=== PATIENT | male | born 1990 | race Caucasian/White ===

== ENCOUNTER 2019-05-29 19:08 | Observation (INO) ==
[2019-05-29] MEDS ORDERED: IBUPROFEN 600 MG TAB PO STA (19:42)
--- NOTE | 2019-05-29 20:01 | XRay Report ---
XR tibia fibula LT 2V CLINICAL HISTORY: left leg pain pain COMPARISON: None. DISCUSSION: The bones and joint spaces appear intact. There is no evidence of fracture, dislocation o r bony disease. There is no evidence for soft tissue swelling. IMPRESSION: Negative study. The above report was generated using voice recognition software. It may contain grammatical, syntax or spelling errors. Electronically signed by: Babar Arevalo M.D. 05/29/2019 8:00 PM
--- NOTE | 2019-05-29 20:02 | XRay Report ---
XR ankle LT min 3V routine CLINICAL HISTORY: left leg pain pain COMPARISON: None. DISCUSSION: Findings consistent with a partial ankle fusion. Bony alignment is anatomic. No acute bon y abnormality. There is no evidence for soft tissue swelling. IMPRESSION: No acute process post partial ankle fusion. The above report was generated using voice recognition software. It may contain grammatical, syntax or spelling errors. Electronically signed by: Babar Arevalo M.D. 05/29/2019 8:01 PM
--- NOTE | 2019-05-29 20:03 | XRay Report ---
XR foot LT min 3V routine CLINICAL HISTORY: left leg pain pain COMPARISON: None. DISCUSSION: The bones and joint spaces appear intact. There is no evidence of fracture, dislocation o r bony disease. Anatomic alignment post partial ankle fusion. IMPRESSION: No acute process post partial ankle fusion. The above report was generated using voice recognition software. It may contain grammatical, syntax or spelling errors. Electronically signed by: Babar Arevalo M.D. 05/29/2019 8:01 PM
[2019-05-29 20:29] LABS: Basophils # (auto) 0.02 K/uL (0-0.2); Basophils % (auto) 0.1 %; Eosinophils # (auto) 0.02 K/uL (0-0.5); Eosinophils % (auto) 0.1 %; Hematocrit (blood only) 39.5 % (42-52); Hemoglobin 14.2 g/dL (14.0-18.0); Immature Granulocytes # (auto) 0.03 K/uL (0.00-0.02); Immature Granulocytes % (auto) 0.2 %; Lymphocytes # (auto) 1.72 K/uL (1.2-3.4); Lymphocytes % (auto) 11.5 %; Mean Corpuscular Hemoglobin 29.4 pg (25-34); Mean Corpuscular Hgb Conc 35.9 g/dL (32-36); Mean Corpuscular Volume 81.8 fL (80-100); Mean Platelet Volume 10.4 fL (7.4-10.4); Monocytes # (auto) 0.92 K/uL (0.11-0.59); Monocytes % (auto) 6.1 %; Neutrophils # (auto) 12.31 K/uL (1.4-6.5); Platelet Count 236 K/uL (130-400); RDW Coefficient of Variation 12.7 % (11.5-14.5); RDW Standard Deviation 38.3 fL (36.4-46.3); Red Blood Count 4.83 M/uL (4.7-6.1); White Blood Count 15.02 K/uL (4.8-10.8)
[2019-05-29] MEDS ORDERED: IOVERSOL 100ml IV PRN (20:35)
[2019-05-29 20:51] LABS: Albumin Globulin Ratio 1.3 (0.9-2); Albumin Level 4.1 gm/dl (3.4-5.0); BUN Creatinine Ratio 11.5 (10-20); Bilirubin,Total 0.4 mg/dl (0.2-1); Calcium 8.8 mg/dl (8.5-10.1); Creatinine Clr Calc Pharmacy 121.8 ml/min; Est GFR (African American) 100.5; Est GFR (Non-African American) 86.7; Globulin 3.1 gm/dl (2.5-4.0); Potassium 4.3 mmol/L (3.5-5.1); Total Protein 7.2 gm/dl (6.4-8.2)
--- NOTE | 2019-05-29 20:56 | CT Scan Report ---
CT tib/fib LT w con CLINICAL HISTORY: left leg pain, calf tight, severe pain TECHNIQUE: Transaxial acquisition with multiaxial reformatted images. COMPARISON STUDY: None FINDINGS: Generalized muscular and to a lesser extent soft tissue edematous change throughout the low er leg. The arterial structures through this region appear to be intact with no major compromise. At the proximal to mid lower leg there is suggestion of an intramuscular hematoma measuring approxima tely 5 x 7 cm. Exact definition of the boundaries are difficult to evaluate. There are findings of mild subcutaneous fat edematous change of this is less prominent as compared to the muscular component. Bony structures appear intact. IMPRESSION: 1. Generalized muscular and to lesser extent subcutaneous soft tissue edematous change throughout the entire lower leg. 2. The vascular arterial structures appear to be intact within the lower leg with no major compromise . 3. Probable intramuscular hematoma. Difficult to to measure. 4. Estimated dimensions are 5 x 7 cm, although boundaries are again difficult to define with this logan surement potentially inaccurate. The above report was generated using voice recognition software. It may contain grammatical, syntax or spelling errors. Electronically signed by: Babar Arevalo M.D. 05/29/2019 8:54 PM
[2019-05-29] MEDS ORDERED: ETHYL CHLORIDE AER PER SPRAY 100 ML CAN EXT ONE (21:16)
[2019-05-29 22:10] LABS: Magnesium 1.9 mg/dl (1.8-2.4)
--- NOTE | 2019-05-29 22:18 | Ultrasound Report ---
US extremity non-vascular ltd CLINICAL HISTORY: Left calf hematoma, please measure COMPARISON STUDY: CT same day FINDINGS: Ultrasonic evaluation of the left calf demonstrates a hematoma of the mid calf measuring 9 x 5 by 4 cm. It appears to be intramuscular. It is well-circumscribed. IMPRESSION: Intramuscular hematoma measuring 9 x 5 x 4 cm. The above report was generated using voice recognition software. It may contain grammatical, syntax or spelling errors. Electronically signed by: Babar Arevalo M.D. 05/29/2019 10:17 PM
[2019-05-29 22:25] LABS: Thyroid Stimulating Hormone 3.21 uIu/ml (0.300-4.500)
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
--- NOTE | 2019-05-29 23:59 | Emergency Department Note ---
History of Present Illness General Chief complaint: Leg Injury/Pain Stated complaint: LEFT CALF PAIN Time Seen by Provider: 05/29/19 19:38 History of Present Illness Maximum Pain Intensity: 9 This is a 28-year-old male that presents to the emergency department via private vehicle with complaints of "left calf pain". He is accompanied by 2 corrections officers as the patient is currently incarcerated. The patient states that he was playing football earlier today around 3 PM when he notes that somebody landed on the back of his left leg injuring the left calf. He notes extreme difficulty with weightbearing and has pain with dorsiflexion. He rates the pain as a 9/10. He notes some tingling developing in the left foot and believes it is feeling much cooler than the right. He has never had this before. Home Medications Home Medications Medication Instructions Recorded Confirmed Type No Known Home Medications 05/29/19 05/29/19 History Allergies Allergy/AdvReac Type Severity Reaction Status Date / Time No Known Allergies Allergy Unverified 05/29/19 20:13 Past Med/Surg History Medical History No pertinent past medical history Surgical History No pertinent past surgical history Social History Preferred Language: Turkish Communication Ability: Effective Page Technician Required: No Beliefs That Will Affect Care: None Current Living Situation: Other Current Living Situation Comment: Inmate Other Information That Helps Us Care for You: No Feels Safe at Home: Yes Smoking Status: Never smoker Do You Dip or Chew Tobacco: No ; Second Hand Exposure: No ; Tobacco Cessation Education Requested by Patient: No Hx Alcohol Use: No Hx Substance Use: No Review of Systems A total of 10 systems reviewed and were otherwise negative Physical Exam Vital Signs Vital Signs - 24 hr 05/29/19 21:37 Pulse Rate [Finger] 64 Respiratory Rate 20 Respiratory Effort / Characteristics Non-Labored Spontaneous Respiratory Depth Normal Respiratory Pattern Regular Blood Pressure [Right Arm] 151/101 H Blood Pressure Mean [Right Arm] 117 Blood Pressure Position [Right Arm] Sitting Pulse Oximetry 100 Oxygen Delivery Method Room Air VITAL SIGNS - Vital signs and nursing notes were reviewed. In room D9 GENERAL -28-year-old male appearing his stated age who is in no acute distress. Communicates well with provider and answers questions appropriately. SKIN - Without rashes. Small faint petechial rash noted overlying the left anterior brown. The left calf appears to be tense visually. No deformity on exam. No break in the integument. It is appropriate color and symmetric to the right. LUNGS - Chest wall symmetric without accessory muscle use, intercostals retractions, or central cyanosis. Normal vesicular breath sounds CTA B/L. No wheezes, rales, or rhonchi appreciated. CARDIAC - RRR with S1/S2. No murmur, rubs, or gallops appreciated. EXTREMITIES -no peripheral cyanosis. Well healing surgical scar on the left foot. The patient's left calf is tense on examination. Patient is quite tender on examination with palpation overlying the left calf as well as the lateral and medial aspects of the left calf tracking from just distal to the left flexor crease of the knee to the left ankle. There is no evidence of complete detachment of the ligamentous structures or rolling under the skin. The patient does have within normal limit dorsalis pedis and posterior tibial pulse of the left lower extremity and is symmetric to the right. However, the patient's left lower extremity is cooler to the touch compared to the right. Cap refill in the left lower extremity toes is within normal limits. Passive plantarflexion is within normal limits but patient has extreme pain with dorsiflexion passively of the left lower extremity. He has decreased movement of the structures below the left knee actively. +5/5 strength noted in UE/LE bilaterally. NEUROLOGIC - Cranial nerves II through XII grossly intact. Sensory intact to light touch throughout. No neurovascular deficit on examination in the left lower extremity. Course Administered Medications Sodium Chloride (Nss 1000ml) 1,000 mls @ 120 mls/hr IV .Q8H20M AUBREE Stop: 06/29/19 11:44 Last Admin: 05/30/19 11:40 Dose: 120 mls/hr Documented by: [id number] Tramadol HCl (Ultram) 25 - 50 mg PO Q4H PRN PRN Reason: Pain Stop: 06/29/19 00:00 Last Admin: 05/30/19 00:24 Dose: 50 mg Documented by: [id number] Discontinued Medications Sodium Chloride (Nss 1000ml) 1,000 mls @ 120 mls/hr IV .Q8H20M AUBREE Stop: 06/29/19 00:00 Last Infusion: 05/30/19 11:41 Dose: 0 mls/hr Documented by: [id number] Admin: 05/30/19 00:26 Dose: 60 mls/hr Documented by: [id number] Promethazine HCl 6.25 mg/ (Sodium Chloride) 50.25 mls @ 201 mls/hr IV ONE ONE Stop: 05/30/19 00:29 Last Infusion: 05/30/19 00:49 Dose: 0 mls/hr Documented by: [id number] Admin: 05/30/19 00:32 Dose: 201 mls/hr Documented by: [id number] Ibuprofen (Motrin) 600 mg PO NOW STA Stop: 05/29/19 19:43 Last Admin: 05/29/19 20:48 Dose: 600 mg Documented by: [id number] Influenza Virus Vaccine Quadrival (Flucelvax Quad Vaccine) 0.5 ml IM .ONCE ONE Stop: 05/30/19 08:01 Last Admin: 05/30/19 09:30 Dose: 0.5 ml Documented by: [id number] Ioversol (Optiray 320 100ml) 90 ml IV ONCE PRN PRN Reason: Interaction Checking Stop: 06/02/19 20:34 Last Admin: 05/29/19 20:37 Dose: 90 ml Documented by: [id number] Medical Decision Making Laboratory Data Result diagrams: 05/30/19 10:02 05/29/19 20:21 Lab Results 05/29/19 05/29/19 05/29/19 Range/Units 20:20 20:21 20:21 WBC 15.02 H (4.8-10.8) K/uL RBC 4.83 (4.7-6.1) M/uL Hgb 14.2 (14.0-18.0) g/dL Hct 39.5 L (42-52) % MCV 81.8 (80-100) fL MCH 29.4 (25-34) pg MCHC 35.9 (32-36) g/dL RDW Std Deviation 38.3 (36.4-46.3) fL RDW Coeff of Danna 12.7 (11.5-14.5) % Plt Count 236 (130-400) K/uL MPV 10.4 (7.4-10.4) fL Immature Gran % (Auto) 0.2 % Neut % (Auto) 82.0 % Lymph % (Auto) 11.5 % [place] % (Auto) 6.1 % Eos % (Auto) 0.1 % Baso % (Auto) 0.1 % Immature Gran # (Auto) 0.03 H (0.00-0.02) K/uL Neut # (Auto) 12.31 H (1.4-6.5) K/uL Lymph # (Auto) 1.72 (1.2-3.4) K/uL [place] # (Auto) 0.92 H (0.11-0.59) K/uL Eos # (Auto) 0.02 (0-0.5) K/uL Baso # (Auto) 0.02 (0-0.2) K/uL Sodium 139 (136-145) mmol/L Potassium 4.3 (3.5-5.1) mmol/L Chloride 106 (98-107) mmol/L Carbon Dioxide 25 (21-32) mmol/L Anion Gap 7.0 (3-11) BUN 13 (7-18) mg/dl Creatinine 1.13 (0.6-1.4) mg/dl Est Cr Clr Drug Dosing 121.8 ml/min Est GFR ( Amer) 100.5 Est GFR (Non-Af Amer) 86.7 BUN/Creatinine Ratio 11.5 (10-20) Glucose 96 (70-99) mg/dl Calcium 8.8 (8.5-10.1) mg/dl Magnesium 1.9 (1.8-2.4) mg/dl Total Bilirubin 0.4 (0.2-1) mg/dl AST 30 (15-37) U/L ALT 33 (12-78) U/L Alkaline Phosphatase 60 (45-117) U/L Total Creatine Kinase 237 (39-308) U/L Total Protein 7.2 (6.4-8.2) gm/dl Albumin 4.1 (3.4-5.0) gm/dl Globulin 3.1 (2.5-4.0) gm/dl Albumin/Globulin Ratio 1.3 (0.9-2) Procalcitonin < 0.05 (0-0.5) ng/ml TSH 3.210 (0.300-4.500) uIu/ml Specimen Hemolysis Imaging Data Radiologist's Impression: XR tibia fibula LT 2V CLINICAL HISTORY: left leg pain pain COMPARISON: None. DISCUSSION: The bones and joint spaces appear intact. There is no evidence of fracture, dislocation or bony disease. There is no evidence for soft tissue swelling. IMPRESSION: Negative study. The above report was generated using voice recognition software. It may contain grammatical, syntax or spelling errors. Electronically signed by: Babar Arevalo M.D. 05/29/2019 8:00 PM XR foot LT min 3V routine CLINICAL HISTORY: left leg pain pain COMPARISON: None. DISCUSSION: The bones and joint spaces appear intact. There is no evidence of fracture, dislocation or bony disease. Anatomic alignment post partial ankle fusion. IMPRESSION: No acute process post partial ankle fusion. The above report was generated using voice recognition software. It may contain grammatical, syntax or spelling errors. Electronically signed by: Babar Arevalo M.D. 05/29/2019 8:01 PM XR ankle LT min 3V routine CLINICAL HISTORY: left leg pain pain COMPARISON: None. DISCUSSION: Findings consistent with a partial ankle fusion. Bony alignment is anatomic. No acute bony abnormality. There is no evidence for soft tissue swelling. IMPRESSION: No acute process post partial ankle fusion. The above report was generated using voice recognition software. It may contain grammatical, syntax or spelling errors. Electronically signed by: Babar Arevalo M.D. 05/29/2019 8:[address] tib/fib LT w con CLINICAL HISTORY: left leg pain, calf tight, severe pain TECHNIQUE: Transaxial acquisition with multiaxial reformatted images. COMPARISON STUDY: None FINDINGS: Generalized muscular and to a lesser extent soft tissue edematous change throughout the lower leg. The arterial structures through this region appear to be intact with no major compromise. At the proximal to mid lower leg there is suggestion of an intramuscular h ematoma measuring approximately 5 x 7 cm. Exact definition of the boundaries are difficult to evaluate. There are findings of mild subcutaneous fat edematous change of this is less prominent as compared to the muscular component. Bony structures appear intact. IMPRESSION: 1. Generalized muscular and to lesser extent subcutaneous soft tissue edematous change throughout the entire lower leg. 2. The vascular arterial structures appear to be intact within the lower leg with no major compromise. 3. Probable intramuscular hematoma. Difficult to to measure. 4. Estimated dimensions are 5 x 7 cm, although boundaries are again difficult to define with this measurement potentially inaccurate. The above report was generated using voice recognition software. It may contain grammatical, syntax or spelling errors. Electronically signed by: Babar Arevalo M.D. 05/29/2019 8:54 PM US extremity non-vascular ltd CLINICAL HISTORY: Left calf hematoma, please measure COMPARISON STUDY: CT same day FINDINGS: Ultrasonic evaluation of the left calf demonstrates a hematoma of the mid calf measuring 9 x 5 by 4 cm. It appears to be intramuscular. It is well- circumscribed. IMPRESSION: Intramuscular hematoma measuring 9 x 5 x 4 cm. The above report was generated using voice recognition software. It may contain grammatical, syntax or spelling errors. Electronically signed by: Babar Arevalo M.D. 05/29/2019 10:17 PM [facility] Narrative Patient was seen and evaluated as above in room D9. Review was performed of nursing notes and vital signs. After obtaining a thorough history and physical examination the above work up was performed. He presents to us today with left calf pain. His examination is concerning for possible compartment syndrome noting the subjective complaints of tingling in the left lower extremity, specifically the left foot, the left foot being cooler to palpation compared to the right, significant edema of the left calf that was quite tense on examination, as well as the patient's pain being out of proportion to examination with passive dorsiflexion of the left foot. X-rays were ordered. Patient declined narcotics and was given p.o. ibuprofen for pain. I discussed the case and concern for possible compartment syndrome with the on-call orthopedic doctor, Dr. Arrieta around 7:40 PM. X-rays were negative. I then discussed this again with Dr. Arrieta, expressing my concern for possible compartment syndrome, and it was recommended to obtain a CT scan of the left lower extremity and then notify him with the findings. I also asked if he would prefer that we obtain compartment measurement and he indicated yes. I asked him if he would like to do this, and he indicated that the attending and I could perform this. Patient consented, CT scan was obtained with results as above. He also consented to compartment measurements via the AFFiRiS measurement system. The left calf was prepared with Betadine. Once the sterile environment was created, the [place] system was utilized, the needle was advanced into the appropriate compartment, and 0.3 mL's of sterile saline were injected. Initial pressure for the first few seconds was 36, and then quickly normalized to 13-14. I called Dr. Arrieta back with these findings. This was at 9:38 PM. He did not feel that this was compartment syndrome based upon these findings but rather pain secondary to the hematoma, but did recommend obtaining an ultrasound to gain a definitive size of the hematoma. This was ordered. He also recommended repeat CK in 12 to 24 hours. I do not believe the patient should return to the [facility], noting that he had an increase in tingling in the left lower extremity which I did discuss with Dr. Arrieta. I am concerned that he could involve with worsening symptoms and would be best monitored here. Dr. Arrieta recommended speaking to the medicine team, having the patient admitted under their service with orthopedic consult, ice, elevation, nonweightbearing status, using a walker for ambulation, Akash SCD on the opposite side, repeat CK in 12-24 hours, n.p.o. after midnight, and then orthopedic consult in the morning for reevaluation. I discussed this with Dr. Crockett, and he will admit the patient further evaluation and management. I did order the repeat CK. CBC reveals leukocytosis of 15.02. No emergent metabolic disturbance. CK normal at this time. Please refer to further documentation regarding his stay. In the evaluation and treatment of this patient the following differential diagn oses were entertained: Fracture, dislocation, subluxation, contusion, compartment syndrome, among others. Impression & Plan Traumatic hematoma of left lower leg Discharge Plan Visit Data *Final* Discharge Date/Time: 05/29/19 23:10 Chief Complaint: Leg Injury/Pain Stated Complaint: LEFT CALF PAIN ED Provider: Akila Mcintyre ED Midlevel Provider: Vinnie Langford Discharge Problem: Traumatic hematoma of left lower leg Patient Disposition: Admitted As Inpatient Condition: Good Discharge Instructions Interventions: ED Discharge Assessment Last Done: 05/29/19 23:10
[2019-05-30] MEDS ORDERED: PROMETHAZINE HCL 12.5 MG in SODIUM CHLORIDE 0.9% 50 ML IV PRN (00:01)
[2019-05-30] MEDS ORDERED: KETOROLAC TROMETHAMINE 15 MG/ML VIAL IV PRN (00:01)
[2019-05-30] MEDS ORDERED: SODIUM CHLORIDE 0.9% 1000ML 1,000 ML IV SCH (00:01)
[2019-05-30] MEDS ORDERED: IBUPROFEN 200 MG TAB PO PRN (00:01)
[2019-05-30] MEDS ORDERED: ACETAMINOPHEN 325 MG TAB PO PRN (00:01)
[2019-05-30] MEDS ORDERED: PROMETHAZINE HCL 6.25 MG in SODIUM CHLORIDE 0.9% 50 ML IV ONE (00:15)
[2019-05-30] MEDS: TRAMADOL HCL 50 MG TABLET PO PRN (00:24)
[2019-05-30 00:46] LABS: Hematocrit (blood only) 36.3 % (42-52); Hemoglobin 12.9 g/dL (14.0-18.0)
[2019-05-30] MEDS ORDERED: INFLUENZA VIRUS QUAD VACCINE 0.5 ML SYR IM ONE (08:00)
[2019-05-30] MEDS ORDERED: INFLUENZA ADMINISTRATION CHARGE ONE (08:00)
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
[2019-05-30 10:11] LABS: Basophils # (auto) 0.01 K/uL (0-0.2); Basophils % (auto) 0.1 %; Eosinophils # (auto) 0.05 K/uL (0-0.5); Eosinophils % (auto) 0.7 %; Hemoglobin 12.7 g/dL (14.0-18.0); Immature Granulocytes # (auto) 0.01 K/uL (0.00-0.02); Immature Granulocytes % (auto) 0.1 %; Lymphocytes # (auto) 1.97 K/uL (1.2-3.4); Lymphocytes % (auto) 26.1 %; Mean Corpuscular Hemoglobin 28.7 pg (25-34); Mean Corpuscular Hgb Conc 34.3 g/dL (32-36); Mean Corpuscular Volume 83.5 fL (80-100); Mean Platelet Volume 10.1 fL (7.4-10.4); Monocytes # (auto) 0.84 K/uL (0.11-0.59); Monocytes % (auto) 11.1 %; Neutrophils # (auto) 4.67 K/uL (1.4-6.5); Neutrophils % (auto) 61.9 %; Platelet Count 202 K/uL (130-400); RDW Coefficient of Variation 12.8 % (11.5-14.5); RDW Standard Deviation 38.8 fL (36.4-46.3); Red Blood Count 4.43 M/uL (4.7-6.1); White Blood Count 7.55 K/uL (4.8-10.8)
[2019-05-30] MEDS: SODIUM CHLORIDE 0.9% 1000ML 1,000 ML IV SCH ×2 (11:40→19:45)
--- NOTE | 2019-05-30 11:45 | Hospitalist Progress Note ---
Date of Service May 30, 2019 Assessment & Plan (1) Traumatic hematoma of left lower leg: No compartment syndrome on initial evaluation at the ER or on follow up exam by orthop. surgeon this AM Pt feels better this AM Leg elevation, ice pack for left leg hematoma Trend H&H, transfuse pRBC if Hgb< 7 and/or for symptomatic anemia CK elevated this AM, will cont. w/ IVF and will re-check in 12 hrs Situational hypertension secondary to above Monitor BP, analgesics as needed DVT prophylaxis. SCDs on right LE Code: Full code Review of Systems Review of Systems: As per HPI, all 10 systems reviewed, all other ROS negative Constitutional: no fever, no chills and no fatigue Respiratory: no cough and no dyspnea Cardiovascular: no chest pain, no dyspnea on exertion and no palpitations Gastrointestinal: no abdominal pain, no nausea and no vomiting Musculoskeletal: Left lower extremity edema and pain Physical Exam Physical Exam: Young male lying in bed, in no acute distress, left lower extremity elevated Constitutional: well developed and well nourished; no acute distress Eyes: PERRL, conjunctivae normal, anicteric sclerae ENMT: external ear and nose normal, oropharynx normal Neck: Supple, no JVD Respiratory: normal respiratory effort, lungs clear to auscultation Auscultation: no crackles, no rhonchi and no wheezes Cardiovascular: Rate/Rhythm: regular rate and regular rhythm Heart Sounds: normal S1 and normal S2; no murmur Vessels: no JVD Chest (Breasts): normal inspection/palpation of breasts Gastrointestinal (Abdomen): Inspection/Auscultation: abdomen normal to inspection and normal bowel sounds; abdomen not distended Percussion/Palpation: abdomen soft; abdomen nontender Musculoskeletal: Head/Neck/Chest: normocephalic, head atraumatic and neck supple Left lower extremity mildly elevated while lying in bed, there is mild edema of left calf, 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 calf hard and tender to palpation, patient is able to dorsiflex and plantarflex, pulses 2+, no sensory loss Skin: no rashes, warm and dry Neurologic: PERRL, EOMI, accommodation nl, no face palsy, no dysarthria Motor/Sensory: no fasciculations and no sensory deficit Cranial Nerves: normal hearing Psychiatric: Affect: euthymic affect Genitourinary: no CVA tenderness Lymphatic: no cervical or axillary lymphadenopathy Results & Data Vital Signs (Past 12 Hours) Vital Signs Temp Pulse Resp BP Pulse Ox 05/30/19 07:20 36.7 C 71 16 136/89 97 05/29/19 23:35 37 C 72 18 155/90 H 97 Laboratory Results 05/30/19 05/30/19 05/30/19 Range/Units 10:02 10:02 00:18 WBC 7.55 (4.8-10.8) K/uL RBC 4.43 L (4.7-6.1) M/uL Hgb 12.7 L (14.0-18.0) g/dL Hct 37.0 L (42-52) % MCV 83.5 (80-100) fL MCH 28.7 (25-34) pg MCHC 34.3 (32-36) g/dL RDW Std Deviation 38.8 (36.4-46.3) fL RDW Coeff of Danna 12.8 (11.5-14.5) % Plt Count 202 (130-400) K/uL MPV 10.1 (7.4-10.4) fL Immature Gran % (Auto) 0.1 % Neut % (Auto) 61.9 % Lymph % (Auto) 26.1 % [place] % (Auto) 11.1 % Eos % (Auto) 0.7 % Baso % (Auto) 0.1 % Immature Gran # (Auto) 0.01 (0.00-0.02) K/uL Neut # (Auto) 4.67 (1.4-6.5) K/uL Lymph # (Auto) 1.97 (1.2-3.4) K/uL [place] # (Auto) 0.84 H (0.11-0.59) K/uL Eos # (Auto) 0.05 (0-0.5) K/uL Baso # (Auto) 0.01 (0-0.2) K/uL Sodium (136-145) mmol/L Potassium (3.5-5.1) mmol/L Chloride (98-107) mmol/L Carbon Dioxide (21-32) mmol/L Anion Gap (3-11) BUN (7-18) mg/dl Creatinine (0.6-1.4) mg/dl Est Cr Clr Drug Dosing ml/min Est GFR ( Amer) Est GFR (Non-Af Amer) BUN/Creatinine Ratio (10-20) Glucose (70-99) mg/dl Calcium (8.5-10.1) mg/dl Magnesium (1.8-2.4) mg/dl Total Bilirubin (0.2-1) mg/dl AST (15-37) U/L ALT (12-78) U/L Alkaline Phosphatase (45-117) U/L Total Creatine Kinase 694 H (39-308) U/L Total Protein (6.4-8.2) gm/dl Albumin (3.4-5.0) gm/dl Globulin (2.5-4.0) gm/dl Albumin/Globulin Ratio (0.9-2) Procalcitonin (0-0.5) ng/ml TSH (0.300-4.500) uIu/ml Specimen Hemolysis Blood Type O Positive Antibody Screen NEGATIVE 05/30/19 05/29/19 05/29/19 Range/Units 00:18 20:21 20:20 WBC (4.8-10.8) K/uL RBC (4.7-6.1) M/uL Hgb 12.9 L (14.0-18.0) g/dL Hct 36.3 L (42-52) % MCV (80-100) fL MCH (25-34) pg MCHC (32-36) g/dL RDW Std Deviation (36.4-46.3) fL RDW Coeff of Danna (11.5-14.5) % Plt Count (130-400) K/uL MPV (7.4-10.4) fL Immature Gran % (Auto) % Neut % (Auto) % Lymph % (Auto) % [place] % (Auto) % Eos % (Auto) % Baso % (Auto) % Immature Gran # (Auto) (0.00-0.02) K/uL Neut # (Auto) (1.4-6.5) K/uL Lymph # (Auto) (1.2-3.4) K/uL [place] # (Auto) (0.11-0.59) K/uL Eos # (Auto) (0-0.5) K/uL Baso # (Auto) (0-0.2) K/uL Sodium 139 (136-145) mmol/L Potassium 4.3 (3.5-5.1) mmol/L Chloride 106 (98-107) mmol/L Carbon Dioxide 25 (21-32) mmol/L Anion Gap 7.0 (3-11) BUN 13 (7-18) mg/dl Creatinine 1.13 (0.6-1.4) mg/dl Est Cr Clr Drug Dosing 121.8 ml/min Est GFR ( Amer) 100.5 Est GFR (Non-Af Amer) 86.7 BUN/Creatinine Ratio 11.5 (10-20) Glucose 96 (70-99) mg/dl Calcium 8.8 (8.5-10.1) mg/dl Magnesium 1.9 (1.8-2.4) mg/dl Total Bilirubin 0.4 (0.2-1) mg/dl AST 30 (15-37) U/L ALT 33 (12-78) U/L Alkaline Phosphatase 60 (45-117) U/L Total Creatine Kinase 237 (39-308) U/L Total Protein 7.2 (6.4-8.2) gm/dl Albumin 4.1 (3.4-5.0) gm/dl Globulin 3.1 (2.5-4.0) gm/dl Albumin/Globulin Ratio 1.3 (0.9-2) Procalcitonin < 0.05 (0-0.5) ng/ml TSH 3.210 (0.300-4.500) uIu/ml Specimen Hemolysis Blood Type Antibody Screen Medications Administered Current Inpatient Medications Acetaminophen (Tylenol) 650 mg PO Q4H PRN PRN Reason: pain/fever Stop: 06/29/19 00:00 Promethazine HCl 12.5 mg/ (Sodium Chloride) 50.5 mls @ 202 mls/hr IV Q6H PRN PRN Reason: Nausea And Vomiting Stop: 06/29/19 00:00 Ibuprofen (Advil) 200 mg PO Q6H PRN PRN Reason: Mild Pain Stop: 06/29/19 00:00 Ketorolac Tromethamine (Toradol) 15 mg IV Q6H PRN PRN Reason: Pain Stop: 06/04/19 00:00 Tramadol HCl (Ultram) 25 - 50 mg PO Q4H PRN PRN Reason: Pain Stop: 06/29/19 00:00 Last Admin: 05/30/19 00:24 Dose: 50 mg Documented by:
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
[2019-05-30 23:28] VITALS: O2SAT 98
[2019-05-30] MEDS ORDERED: LACTATED RINGER'S 1,000 ML IV ONE (23:40)
[2019-05-31] MEDS: TRAMADOL HCL 50 MG TABLET PO PRN ×2 (00:07→08:46)
[2019-05-31] MEDS: LACTATED RINGER'S 1,000 ML IV SCH ×3 (02:05→12:05)
[2019-05-31 06:10] LABS: Basophils # (auto) 0.01 K/uL (0-0.2); Basophils % (auto) 0.1 %; Eosinophils % (auto) 1.3 %; Hematocrit (blood only) 36.6 % (42-52); Hemoglobin 12.5 g/dL (14.0-18.0); Immature Granulocytes # (auto) 0.02 K/uL (0.00-0.02); Immature Granulocytes % (auto) 0.3 %; Lymphocytes # (auto) 2.67 K/uL (1.2-3.4); Lymphocytes % (auto) 35.6 %; Mean Corpuscular Hemoglobin 28.5 pg (25-34); Mean Corpuscular Hgb Conc 34.2 g/dL (32-36); Mean Corpuscular Volume 83.4 fL (80-100); Mean Platelet Volume 10.5 fL (7.4-10.4); Monocytes # (auto) 0.92 K/uL (0.11-0.59); Monocytes % (auto) 12.3 %; Neutrophils # (auto) 3.79 K/uL (1.4-6.5); Neutrophils % (auto) 50.4 %; Platelet Count 194 K/uL (130-400); RDW Coefficient of Variation 12.7 % (11.5-14.5); RDW Standard Deviation 38.6 fL (36.4-46.3); Red Blood Count 4.39 M/uL (4.7-6.1); White Blood Count 7.51 K/uL (4.8-10.8)
[2019-05-31 06:49] LABS: BUN Creatinine Ratio 12.4 (10-20); Calcium 8.5 mg/dl (8.5-10.1); Est GFR (African American) 127.2; Est GFR (Non-African American) 109.8
[2019-05-31 15:32] VITALS: PULSE 63; TEMP 98.4
--- NOTE | 2019-05-31 17:48 | Ultrasound Report ---
US extremity nonvascular CLINICAL HISTORY: LLE (calf) pls eval for progression of hematoma. Left lower leg pain. COMPARISON STUDY: Left calf ultrasound 05/29/2019. FINDINGS: Decrease in size in the 6.6 x 2.9 x 2.7 cm complex avascular collection within the left cori f. This favors an intramuscular hematoma. This previously measured 9 x 5 x 4 cm. IMPRESSION: Decrease in size in the 6.6 x 2.9 x 2.7 cm left calf intramuscular hematoma. Electronically signed by: Zafar Reyes M.D. 05/31/2019 5:46 PM
--- NOTE | 2019-05-31 19:32 | Hospitalist Progress Note ---
Date of Service May 31, 2019 Assessment & Plan (1) Traumatic hematoma of left lower leg: No compartment syndrome on initial evaluation at the ER or on follow up exam by orthop. surgeon yesterday AM (05/30) Pt feels better this AM Leg elevation, ice pack for left leg hematoma Trend H&H, transfuse pRBC if Hgb< 7 and/or for symptomatic anemia CK elevated 05/30 AM, cont. w/ IVF and re-check in 12 hrs, elevated again at around 1200, cont. IVF overnight, this AM (05/31) CK downtrended to 1100 On exam this AM (05/31) pt complains of numbness in posterior calf area, pedal pulses 2+, leg is warm, well perfused, circumf. 43.5 cm Obtained repeat ultrasound of left LE (05/31), hematoma decreased in size Follow up exam in the afternoon - circumf. decreased to 42.5 cm Situational hypertension secondary to above Monitor BP, analgesics as needed DVT prophylaxis. SCDs on right LE Code: Full code Subjective No acute events overnight, patient complains of numbness in the L posterior calf area. Denies any fevers, chills, chest pain, shortness of breath, abdominal pain, nausea. Review of Systems Review of Systems: As per HPI, all 10 systems reviewed, all other ROS negative Constitutional: no fever and no chills Respiratory: no cough and no dyspnea Cardiovascular: no chest pain and no palpitations Gastrointestinal: no abdominal pain, no nausea and no vomiting Musculoskeletal: Left lower extremity edema and pain Physical Exam Physical Exam: young male lying in bed, in NAD Constitutional: well developed and well nourished; no acute distress Eyes: PERRL, conjunctivae normal, anicteric sclerae ENMT: external ear and nose normal, oropharynx normal Neck: supple, no JVD Respiratory: normal respiratory effort, lungs clear to auscultation Auscultation: no crackles, no rhonchi and no wheezes Cardiovascular: Rate/Rhythm: regular rate and regular rhythm Heart Sounds: normal S1 and normal S2; no murmur Vessels: no JVD Chest (Breasts): normal inspection/palpation of breasts Gastrointestinal (Abdomen): Inspection/Auscultation: abdomen normal to inspection and normal bowel sounds; abdomen not distended Percussion/Palpation: abdomen soft; abdomen nontender Musculoskeletal: Head/Neck/Chest: normocephalic, head atraumatic and neck supple R calf circumf. 40.5 cm, L calf circumf. 43.5 cm and somewhat tense, distal pulses 2+ Skin: no rashes, warm and dry Neurologic: PERRL, EOMI, accommodation nl, no face palsy, no dysarthria M otor/Sensory: no fasciculations and no sensory deficit Cranial Nerves: normal hearing Psychiatric: Affect: euthymic affect Genitourinary: no CVA tenderness Lymphatic: no cervical or axillary lymphadenopathy Results & Data Vital Signs (Past 12 Hours) Vital Signs Temp Pulse Resp BP Pulse Ox 05/31/19 15:31 36.9 C 63 16 137/91 98 Laboratory Results 05/31/19 05/31/19 05/30/19 Range/Units 05:31 05:31 22:13 WBC 7.51 (4.8-10.8) K/uL RBC 4.39 L (4.7-6.1) M/uL Hgb 12.5 L (14.0-18.0) g/dL Hct 36.6 L (42-52) % MCV 83.4 (80-100) fL MCH 28.5 (25-34) pg MCHC 34.2 (32-36) g/dL RDW Std Deviation 38.6 (36.4-46.3) fL RDW Coeff of Danna 12.7 (11.5-14.5) % Plt Count 194 (130-400) K/uL MPV 10.5 H (7.4-10.4) fL Immature Gran % (Auto) 0.3 % Neut % (Auto) 50.4 % Lymph % (Auto) 35.6 % [place] % (Auto) 12.3 % Eos % (Auto) 1.3 % Baso % (Auto) 0.1 % Immature Gran # (Auto) 0.02 (0.00-0.02) K/uL Neut # (Auto) 3.79 (1.4-6.5) K/uL Lymph # (Auto) 2.67 (1.2-3.4) K/uL [place] # (Auto) 0.92 H (0.11-0.59) K/uL Eos # (Auto) 0.10 (0-0.5) K/uL Baso # (Auto) 0.01 (0-0.2) K/uL Sodium 140 (136-145) mmol/L Potassium 4.0 (3.5-5.1) mmol/L Chloride 108 H (98-107) mmol/L Carbon Dioxide 27 (21-32) mmol/L Anion Gap 5.0 (3-11) BUN 12 (7-18) mg/dl Creatinine 0.93 (0.6-1.4) mg/dl Est Cr Clr Drug Dosing 148.0 ml/min Est GFR ( Amer) 127.2 Est GFR (Non-Af Amer) 109.8 BUN/Creatinine Ratio 12.4 (10-20) Glucose 86 (70-99) mg/dl Calcium 8.5 (8.5-10.1) mg/dl Total Creatine Kinase 1127 H 1272 H (39-308) U/L Medications Administered Current Inpatient Medications Acetaminophen (Tylenol) 650 mg PO Q4H PRN PRN Reason: pain/fever Stop: 06/29/19 00:00 Last Admin: 05/31/19 00:52 Dose: 650 mg Documented by: Promethazine HCl 12.5 mg/ (Sodium Chloride) 50.5 mls @ 202 mls/hr IV Q6H PRN PRN Reason: Nausea And Vomiting Stop: 06/29/19 00:00 Tramadol HCl (Ultram) 25 - 50 mg PO Q4H PRN PRN Reason: Pain Stop: 06/29/19 00:00 Last Admin: 05/31/19 08:46 Dose: 50 mg Documented by:
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
[2019-05-31 20:09] VITALS: BP 122/87
== END 2019-05-31 21:05 ==
LOC: ED 19:08 → 3N 19:08 → SUATTDRO 22:33 → 3N 23:10